=== PATIENT | female | born 1945 ===

== ENCOUNTER 2016-11-13 12:01 | Inpatient (IN) | payer MEDICARE ==
[2016-11-11 15:20] VITALS: BMI 38.0
[~2016-11-13 12:01] MED LIST: DEXAMETHASONE SOD PHOSPHATE 10 MG/ML 1 ML VIAL IV ONE; HEPARIN SODIUM,PORCINE 5,000 UNIT/ML 1 ML VIAL SQ ONE; HYDROmorphone 1 MG/ML 1 ML SYRINGE IVP PRN; LACTATED RINGERS 1,000 ML IV SCH; ONDANSETRON 4 MG/2 ML VIAL IVP ONE; ceFAZolin 2 GM in SODIUM CHLORIDE 0.9% 100 ML IVPB ONE
[2016-11-13 12:40] LABS: Glucose,Whole Blood 122 mg/dL (75-99)
[2016-11-13] MEDS ORDERED: LIDOCAINE 1% 20 ML VIAL (10MG/ML) FOR IV START INTRADERMA ONE (12:43)
[2016-11-13] MEDS ORDERED: DEXAMETHASONE SOD PHOS (MDV) 100 MG/10 ML VIAL IV ONE (12:44)
[2016-11-13] MEDS ORDERED: ONDANSETRON 4 MG/2 ML VIAL IVP ONE (12:44)
[2016-11-13] MEDS: LACTATED RINGERS 1,000 ML IV SCH ×3 (12:44→20:26)
[2016-11-13] MEDS ORDERED: BUPIVACAIN-EPI 0.25%-1:200,000 30 ML VIAL SQ ONE (12:50)
--- NOTE | 2016-11-13 12:57 | P.GSHP ---
History of Present Illness H&P Date: 11/13/16 Chief Complaint: Incarcerated umbilical hernia This is a 71-year-old female who presents today for laparoscopic robotic- assisted repair of incarcerated hernia. Patient has developed a mass at the umbilicus. Past Medical History Past Medical History: CVA/TIA, Diabetes Mellitus, Hyperlipidemia, Hypertension, Osteoarthritis (OA), Thyroid Disorder Additional Past Medical History / Comment(s): umbilical hernia, ?tia in past, hx gerd, none now, History of Any Multi-Drug Resistant Organisms: None Reported Past Surgical History: Joint Replacement, Orthopedic Surgery Additional Past Surgical History / Comment(s): jody fundlaplasty, partial left knee replacement, rt wrist sx, AV fistula sx x2 Past Anesthesia/Blood Transfusion Reactions: No Reported Reaction Additional Past Anesthesia/Blood Transfusion Reaction / Comment(s): patient states "I do not want any Versed at all" Past Psychological History: Anxiety, Depression Smoking Status: Former smoker Past Alcohol Use History: None Reported Additional Past Alcohol Use History / Comment(s): quit smoking 2005, smoked on and off from age 19 (1964) 1 ppd Past Drug Use History: None Reported - Past Family History Mother Family Medical History: No Reported History Medications and Allergies Home Medications Medication Instructions Recorded Confirmed Type Ascorbic Acid [Vitamin C] 500 mg PO DAILY 11/11/16 11/13/16 History Aspirin [Children's Aspirin] 81 mg PO BID 11/11/16 11/13/16 History Calcium Carbonate/Vitamin D3 1 each PO DAILY 11/11/16 11/13/16 History [Calcium 500-Vit D3 200 Tablet] Denosumab [Prolia] 60 mg SQ Q180D 11/11/16 11/13/16 History Glimepiride [Amaryl] 2 mg PO BID 11/11/16 11/13/16 History Insulin Degludec [Tresiba 30 unit SQ HS 11/11/16 11/13/16 History Flextouch U-100] Levothyroxine Sodium [Synthroid] 50 mcg PO DAILY 11/11/16 11/13/16 History Lisinopril [Prinivil] 10 mg PO HS 11/11/16 11/13/16 History Multivit-Min/Iron/Folic/Lutein 1 each PO DAILY 11/11/16 11/13/16 History [Centrum Silver Women Tablet] [place]-3 Fatty Acids/Fish Oil [Fish 1 each PO DAILY 11/11/16 11/13/16 History Oil 1,000 mg Capsule] PARoxetine [Paxil] 20 mg PO HS 11/11/16 11/13/16 History Simvastatin 40 mg PO DAILY 11/11/16 11/13/16 History lamoTRIgine [LaMICtal] 75 mg PO HS 11/11/16 11/13/16 History metFORMIN HCL [Metformin HCl] 850 mg PO BID 11/11/16 11/13/16 History traMADol HCL [Ultram] 50 mg PO Q6HR PRN 11/11/16 11/13/16 History Allergies Allergy/AdvReac Type Severity Reaction Status Date / Time Iodine and Iodide Containing Allergy NUMBNESS Verified 11/13/16 12:21 Produc shellfish derived [Shellfish] Allergy Unknown Verified 11/13/16 12:21 Surgical - Exam Vital Signs Temp Pulse BP Pulse Ox 97.3 F L 75 115/73 99 11/13/16 12:29 11/13/16 12:29 11/13/16 12:29 11/13/16 12:29 - General well developed, no distress - Eyes PERRL - ENT normal pinna - Neck no masses - Respiratory normal expansion - Cardiovascular Rhythm: regular - Abdomen Abdomen: soft, non tender Hernia: umbilical (5 cm partially umbilical hernia) Results - Labs Abnormal Lab Results - Last 24 Hours (Table) 11/13/16 Range/Units 12:37 POC Glucose (mg/dL) 122 H (75-99) mg/dL Assessment and Plan Plan: Incarcerated we'll hernia. We'll perform laparoscopic robotic system repair.
[2016-11-13] MEDS ORDERED: LABETALOL 5 MG/ML VIAL MDV ONE (13:49)
[2016-11-13] MEDS ORDERED: fentaNYL (PF) 50 MCG/ML 2 ML AMP ONE (13:49)
[2016-11-13] MEDS ORDERED: NEOSTIGMINE 1 MG/ML 10 ML VIAL ONE (13:49)
[2016-11-13] MEDS ORDERED: LIDOCAINE 1% INJ 10MG/ML (20 ML MDV) ONE (13:49)
[2016-11-13] MEDS ORDERED: GLYCOPYRROLATE 0.2 MG/ML 2 ML VIAL ONE (13:49)
[2016-11-13] MEDS ORDERED: SUCCINYLCHOLINE CHLORIDE 100 MG/5 ML SYR IV ONE (13:49)
[2016-11-13] MEDS ORDERED: ROCURONIUM BROMIDE 10 MG/ML 10 ML VIAL IV ONE (13:49)
[2016-11-13] MEDS ORDERED: MORPHINE SULFATE 10 MG/ML SYRINGE ONE (13:49)
[2016-11-13] MEDS ORDERED: PROPOFOL 10 MG/ML 20 ML VIAL IV ONE (13:49)
[2016-11-13] MEDS ORDERED: LACTATED RINGERS 1,000 ML IV ONE ×2 (14:25→15:47)
--- NOTE | 2016-11-13 14:52 | P.OP ---
Date of Procedure: 11/13/16 Preoperative Diagnosis: Incarcerated umbilical hernia Postoperative Diagnosis: Incarcerated umbilical hernia Procedure(s) Performed: Laparoscopic robotic-assisted repair of incarcerated umbilical hernia Partial greater omentectomy Implants: Anesthesia: RUSS Surgeon: Javier Del Valle Estimated Blood Loss (ml): 5 Pathology: other (Incarcerated omentum) Condition: stable Disposition: PACU Indications for Procedure: Operative Findings: Description of Procedure: The patient's placed on the operative table in supine position. She received general anesthesia. Her abdomen was prepped and draped in sterile fashion. The skin incision sites were anesthetized 1% local Xylocaine. Using 11 blade a skin was incised in the left upper quadrant and then using the optical 5 mm trocar the perineal cavity is entered under direct visualization and then the abdomen insufflated after adequate insufflation the laparoscope was placed back the pleural cavity. Next a 8 mm robotic trochars placed in the left lower quadrant and a 12 mm trochars placed the left lateral position the original 5 mm trocar was exchanged for an 8 mm robotic trocar. The patient's placed in the left side up position and then docked to the robot. The patient's hernia was examined. There was incarcerated omentum within the hernia. This was dissected free using the cautery. The fascial defect was then closed OV lock suture. After this was performed the ventral ST mesh was secured using 20 the lock suture. The patient was then undocked the robot. The needles were retrieved. And then the incarcerated omentum was brought out through an Endo Catch withdrawn and sent to pathology. The 12 mm trocar site was closed with 0 Ethibond suture. The skin was closed interrupted 3-0 Monocryl suture. Dermabond was applied. Patient top she will was sent to recovery room stable condition.
[2016-11-13] MEDS ORDERED: HYDROmorphone 1 MG/ML 1 ML SYRINGE IVP ONE ×2 (15:17→15:27)
[2016-11-13 15:35] LABS: Glucose,Whole Blood 186 mg/dL (75-99)
[2016-11-13] MEDS ORDERED: HYDROcodone/APAP 7.5-325MG 1 EACH TAB PO ONE (16:35)
[2016-11-13] MEDS ORDERED: ONDANSETRON 4 MG/2 ML VIAL IVP PRN (19:08)
[2016-11-13] MEDS: HYDROmorphone 1 MG/ML 1 ML SYRINGE IVP PRN (19:10)
[2016-11-13] MEDS: LISINOPRIL 10 MG TAB PO SCH (20:41)
[2016-11-13] MEDS: GLIMEPIRIDE 2 MG TAB PO SCH (20:41)
[2016-11-13] MEDS: metFORMIN 850 MG TAB PO SCH (20:41)
[2016-11-13] MEDS: PARoxetine 20 MG TAB PO SCH (20:41)
[2016-11-13] MEDS: lamoTRIgine 25 MG TAB PO SCH (20:41)
[2016-11-13 20:42] LABS: Glucose,Whole Blood 181 mg/dL (75-99)
[2016-11-13] MEDS: INSULIN LISPRO (humaLOG) 300 UNIT/3 ML VIAL SQ SCH (20:46)
[2016-11-13] MEDS: HYDROcodone/APAP 7.5-325MG 1 EACH TAB PO PRN (21:54)
[2016-11-14] MEDS: HYDROmorphone 1 MG/ML 1 ML SYRINGE IVP PRN ×2 (00:36→20:24)
[2016-11-14] MEDS: HYDROcodone/APAP 7.5-325MG 1 EACH TAB PO PRN ×3 (02:16→13:04)
[2016-11-14] MEDS: LEVOTHYROXINE 50 MCG TAB PO SCH (06:15)
[2016-11-14 06:49] LABS: Glucose,Whole Blood 78 mg/dL (75-99)
[2016-11-14] MEDS: INSULIN LISPRO (humaLOG) 300 UNIT/3 ML VIAL SQ SCH ×4 (08:05→20:25)
[2016-11-14] MEDS: ATORVASTATIN 20 MG TAB PO SCH (08:12)
[2016-11-14] MEDS: metFORMIN 850 MG TAB PO SCH ×2 (08:12→17:34)
[2016-11-14] MEDS: GLIMEPIRIDE 2 MG TAB PO SCH ×2 (08:12→20:24)
[2016-11-14 12:11] LABS: Glucose,Whole Blood 117 mg/dL (75-99)
[2016-11-14] MEDS: LACTATED RINGERS 1,000 ML IV SCH (15:39)
[2016-11-14 17:00] LABS: Glucose,Whole Blood 104 mg/dL (75-99)
--- NOTE | 2016-11-14 19:05 | P.PN ---
Subjective Principal diagnosis: Postop incisional hernia repair The patient was admitted last night for complaints of incisional pain. She states that she still has incisional pain and has trouble when moving. Objective - Vital Signs Vital signs: Vital Signs Temp 98 F 11/14/16 16:00 Pulse 88 11/14/16 16:00 Resp 16 11/14/16 16:00 BP 153/76 11/14/16 16:00 Pulse Ox 92 L 11/14/16 16:00 Intake & Output 11/14/16 11/14/16 11/15/16 06:59 18:59 06:59 Intake Total 810 236 Balance 810 236 Weight 94.347 kg Intake: Intake, IV Titration 360 Amount Lactated Ringers 1,000 ml 360 @ 50 mls/hr IV .Q20H ALBARO Rx#:[id number] Oral 450 236 Other: Voiding Method Toilet Toilet # Voids 2 - Constitutional General appearance: Present: cooperative - Gastrointestinal Gastrointestinal Comment(s): Abdomen soft. Incision site is clean dry intact. - Labs Labs: Abnormal Lab Results - Last 24 Hours (Table) 11/13/16 11/14/16 11/14/16 Range/Units 20:36 12:10 16:58 POC Glucose (mg/dL) 181 H 117 H 104 H (75-99) mg/dL Assessment and Plan Plan: Status post laparoscopic robotic-assisted repair of incisional hernia. Patient will remain in the hospital today secondary to pain control issues. We'll continue IV Dilaudid when necessary. Hopefully discharged home in the a.m.
[2016-11-14 20:02] LABS: Glucose,Whole Blood 131 mg/dL (75-99)
[2016-11-14] MEDS: LISINOPRIL 10 MG TAB PO SCH (20:25)
[2016-11-14] MEDS: PARoxetine 20 MG TAB PO SCH (20:25)
[2016-11-14] MEDS: lamoTRIgine 25 MG TAB PO SCH (20:25)
[2016-11-15] MEDS: HYDROmorphone 1 MG/ML 1 ML SYRINGE IVP PRN ×2 (00:18→05:54)
[2016-11-15] MEDS: LEVOTHYROXINE 50 MCG TAB PO SCH (05:53)
[2016-11-15 06:36] LABS: Glucose,Whole Blood 162 mg/dL (75-99)
[2016-11-15 07:37] VITALS: BP 123/73; PULSE 96; RESP 16; TEMP 97.4
[2016-11-15] MEDS: GLIMEPIRIDE 2 MG TAB PO SCH (08:19)
[2016-11-15] MEDS: INSULIN LISPRO (humaLOG) 300 UNIT/3 ML VIAL SQ SCH ×2 (08:19→12:35)
[2016-11-15] MEDS: metFORMIN 850 MG TAB PO SCH (08:19)
[2016-11-15] MEDS: ATORVASTATIN 20 MG TAB PO SCH (08:19)
[2016-11-15] MEDS: HYDROcodone/APAP 7.5-325MG 1 EACH TAB PO PRN (09:33)
[2016-11-15 11:55] LABS: Glucose,Whole Blood 164 mg/dL (75-99)
--- NOTE | 2016-11-15 12:37 | P.DS ---
Providers Date of admission: 11/15/16 09:28 Expected date of discharge: 11/15/16 Attending physician: Javier Del Valle Primary care physician: Gavi Salgado [facility] Course: [id number] female who was admitted to the hospital postoperatively for control of pain. Patient underwent laparoscopic robotic system repair of incisional hernia. Please see hospital chart for details. Procedures: Laparoscopic robotic-assisted repair of incisional hernia Patient Condition at Discharge: Good Plan - Discharge Summary New Discharge Prescriptions: New Docusate [Colace] 100 mg PO BID #20 capsule HYDROcodone/APAP 7.5-325MG [[place] 7.5] 1 each PO Q4H PRN #60 tab PRN Reason: Pain No Action traMADol HCL [Ultram] 50 mg PO Q6HR PRN PRN Reason: Pain Ascorbic Acid [Vitamin C] 500 mg PO DAILY lamoTRIgine [LaMICtal] 75 mg PO HS PARoxetine [Paxil] 20 mg PO HS Lisinopril [Prinivil] 10 mg PO HS Levothyroxine Sodium [Synthroid] 50 mcg PO DAILY metFORMIN HCL [Metformin HCl] 850 mg PO BID Simvastatin 40 mg PO DAILY [place]-3 Fatty Acids/Fish Oil [Fish Oil 1,000 mg Capsule] 1 cap PO DAILY Multivit-Min/Iron/Folic/Lutein [Centrum Silver Women Tablet] 1 tab PO DAILY Insulin Degludec [Tresiba Flextouch U-100] 30 unit SQ HS Glimepiride [Amaryl] 2 mg PO BID Denosumab [Prolia] 60 mg SQ Q180D Calcium Carbonate/Vitamin D3 [Calcium 500-Vit D3 200 Tablet] 1 tab PO DAILY Aspirin [Children's Aspirin] 81 mg PO BID Discharge Medication List Ascorbic Acid [Vitamin C] 500 mg PO DAILY 11/11/16 [History] Aspirin [Children's Aspirin] 81 mg PO BID 11/11/16 [History] Calcium Carbonate/Vitamin D3 [Calcium 500-Vit D3 200 Tablet] 1 tab PO DAILY 05/18 [History] Denosumab [Prolia] 60 mg SQ Q180D 11/11/16 [History] Glimepiride [Amaryl] 2 mg PO BID 11/11/16 [History] Insulin Degludec [Tresiba Flextouch U-100] 30 unit SQ HS 11/11/16 [History] Levothyroxine Sodium [Synthroid] 50 mcg PO DAILY 11/11/16 [History] Lisinopril [Prinivil] 10 mg PO HS 11/11/16 [History] Multivit-Min/Iron/Folic/Lutein [Centrum Silver Women Tablet] 1 tab PO DAILY 05/18 [History] [place]-3 Fatty Acids/Fish Oil [Fish Oil 1,000 mg Capsule] 1 cap PO DAILY [History] PARoxetine [Paxil] 20 mg PO HS 11/11/16 [History] Simvastatin 40 mg PO DAILY 11/11/16 [History] lamoTRIgine [LaMICtal] 75 mg PO HS 11/11/16 [History] metFORMIN HCL [Metformin HCl] 850 mg PO BID 11/11/16 [History] traMADol HCL [Ultram] 50 mg PO Q6HR PRN 11/11/16 [History] Docusate [Colace] 100 mg PO BID #20 capsule 11/15/16 [Rx] HYDROcodone/APAP 7.5-325MG [[place] 7.5] 1 each PO Q4H PRN #60 tab 11/15/16 [Rx] Follow up Appointment(s)/Referral(s): Javier Del Valle MD [STAFF PHYSICIAN] - 11/22/16 1:50 pm Patient Instructions/Handouts: *Surgery [facility] - (Anesthesia) Discharge Instructions Outpatient Surgery, Laparoscopic Herniorrhaphy (DC), Umbilical Hernia (DC) Discharge Disposition: HOME SELF-CARE
[2016-11-15] MEDS: LACTATED RINGERS 1,000 ML IV SCH (17:17)
== END 2016-11-15 17:12 | disposition home or self-care (01) | DRG 355 ==
LOC: OR 12:01 → 3OBS 15:06 → OR 11-15 09:28
PROVIDERS: ADMIT Surgery; ATTEND Surgery
PROC: 0WUF4JZ Supplement Abdominal Wall with Synthetic Substitute, Percutaneous Endoscopic Approach (ICD-10-PCS; principal; 2016-11-15)
PROC: 0DBS0ZZ (ICD-10-PCS; principal; 2016-11-15)
PROC: 8E0W4CZ Robotic Assisted Procedure of Trunk Region, Percutaneous Endoscopic Approach (ICD-10-PCS; principal; 2016-11-15)
DX: K42.0 Umbilical hernia with obstruction, without gangrene (principal); E11.9 Type 2 diabetes mellitus without complications; I10 Essential (primary) hypertension; F32.9 Major depressive disorder, single episode, unspecified; E78.5 Hyperlipidemia, unspecified; F41.9 Anxiety disorder, unspecified; Z79.4 Long term (current) use of insulin; Z79.899 Other long term (current) drug therapy; Z86.73 Personal history of transient ischemic attack (TIA), and cerebral infarction without residual deficits; Z87.891 Personal history of nicotine dependence; Z96.652 Presence of left artificial knee joint; Z79.82 Long term (current) use of aspirin
CPT/HCPCS: 88302

== ENCOUNTER → 2019-02-02 | Outpatient (CLI) | payer MEDICARE ==
[2019-02-02 14:05] VITALS: BP 113/74; PULSE 84; RESP 16
--- NOTE | 2019-02-02 14:45 | P.PAINCN ---
History of Present Illness - Reason for Consult Consult date: 02/02/19 - Chief Complaint Low back pain - History of Present Illness This is initial consultation visit for this 73 years old female, with a chronic history of severe low back pain, pain started more than 15 years ago she denies any initiating event, and increased intensity over time, the pain increased with walking or standing ,and alleviated with sitting position, the patient reported that she had a few episodes of leg cramps bilaterally, but she never had weakness in her lower extremities she has no numbness or tingling sensation, the pain mostly in the low back area, and it's more severe on the left side but recently , he started having pain on the right side, she denies any fever or night sweats she denies any motor or sensory deficit, and there is no change in bowel movement or urination, she tried physical therapy and chiropractics with minimal benefit, she tried a medication and she is currently on Tylenol 3, she is getting some benefit from it, she denies any side effects from the m edication. Past Medical History Past Medical History: CVA/TIA, Diabetes Mellitus, Hyperlipidemia, Hypertension, Osteoarthritis (OA), Thyroid Disorder Additional Past Medical History / Comment(s): ?tia in past, hx gerd, osteoporosis History of Any Multi-Drug Resistant Organisms: None Reported Past Surgical History: Hernia Repair, Joint Replacement, Orthopedic Surgery Additional Past Surgical History / Comment(s): carpal tunnel left wrist, umbilical hernia, jody fundlaplasty, partial left knee replacement, rt wrist sx, AV fistula sx x2 Past Anesthesia/Blood Transfusion Reactions: Previous Problems w/ Anesthesia Additional Past Anesthesia/Blood Transfusion Reaction / Comm: patient states "I do not want any Versed at all" Past Psychological History: Anxiety, Depression Smoking Status: Former smoker Past Alcohol Use History: Rare Additional Past Alcohol Use History / Comment(s): quit smoking 2005, smoked on and off from age 19 (1965) 1 ppd Past Drug Use History: None Reported - Past Family History Mother Family Medical History: Hypertension Medications and Allergies Home Medications Medication Instructions Recorded Confirmed Type Ascorbic Acid [Vitamin C] 500 mg PO DAILY 11/11/16 02/02/19 History Aspirin [Children's Aspirin] 81 mg PO BID 11/11/16 02/02/19 History Calcium Carbonate/Vitamin D3 1 tab PO DAILY 11/11/16 02/02/19 History [Calcium 500-Vit D3 200 Tablet] Denosumab [Prolia] 60 mg SQ Q180D 11/11/16 02/02/19 History Insulin Degludec [Tresiba 27 unit SQ HS 11/11/16 02/02/19 History Flextouch U-100] Levothyroxine Sodium [Synthroid] 50 mcg PO DAILY 11/11/16 02/02/19 History Multivit-Min/Iron/Folic/Lutein 1 tab PO DAILY 11/11/16 02/02/19 History [Centrum Silver Women Tablet] [place]-3 Fatty Acids/Fish Oil [Fish 1 cap PO DAILY 11/11/16 02/02/19 History Oil 1,000 mg Capsule] Simvastatin 40 mg PO DAILY 11/11/16 02/02/19 History metFORMIN HCL [Metformin HCl] 850 mg PO BID 11/11/16 02/02/19 History Acetaminophen-Codeine 300-30mg 1 tab PO BID 01/28/19 02/02/19 History [Tylenol w/codeine #3] Lisinopril 20 mg PO HS 01/28/19 02/02/19 History Quetiapine 1 tab PO DAILY 01/28/19 02/02/19 History Allergies Allergy/AdvReac Type Severity Reaction Status Date / Time Iodine and Iodide Containing Allergy states Verified 02/02/19 13:50 Produc "paralysis" shellfish derived [Shellfish] Allergy Unknown Verified 02/02/19 13:50 midazolam [From Versed] AdvReac Confusion Verified 02/02/19 13:55 Physical Exam Vitals: Vital Signs Pulse Resp BP Pulse Ox 02/02/19 13:52 84 16 113/74 96 Intake and Output 02/01/19 02/02/19 02/02/19 22:59 06:59 14:59 Other: Weight 86.183 kg REVIEW OF ORGAN SYSTEMS: CONSTITUTIONAL: No fevers or chills. No recent weight loss. EYES: History of troubles with vision. No glasses. HEENT: No difficulties with hearing. No nosebleeds. No difficulty swallowing. RESPIRATORY: Past pneumonia. Denies any troubles with breathing or dyspnea on exertion. CARDIOVASCULAR: High blood pressure and hypercholesterolemia. GASTROINTESTINAL: Denies fatty food intolerance. Has change in bowel habits and gas bloat. GENITOURINARY: Denies any blood in urine. Has increased urinary frequency. NEUROLOGICAL: Denies any numbness or tingling along the distal extremities. No seizure disorders or headaches. MUSCULOSKELETAL: Has back pain, stiffness or joint arthritis. SKIN: Past t skin cancer. No rash. PSYCHIATRIC: Denies current depression or suicidal thoughts. ENDOCRINE: ++ thyroid disorders. ++ DM . HEME/LYMPHATIC: Denies any lumps and bumps around the neck. History of deep venous thrombosis. ALLERGY/IMMUNOLOGY: No immunoglobulin therapy. No immune deficiencies. BREAST: Denies current breast lumps, pain or nipple discharge. Physical Examinations : Constitutiona : Cooperative , not in acute distress . HEENT : nech : supple , no Lymphadenopathy , normal thyroid size . eyes : no ptosis , no icterus, no photophobia . ENT : normal of hearing , normal oropharynx , no Thrush . Respiratory : Chest clear to auscultations Bilaterally , no wheezing , no Rhonchi . Cardiovascula : regular rate and rhythem , S1 , S2 , no S3 , no S4. Gastrointestina : abdomen soft no tenderness , bowel sounds , no organomegally . Genitourinary : Defferred . neurologic : Cranial nerve II to XII intact , no focal neurological deffecit . psychatric : alert , oriented X 3 , appropriate affect , intact judgment and insight . Lymphatic : no Lymphadenopathy . musculoskeltal : Lumber spine moter stegnth lower extremities ,thigh and legs 5/5 Right side , 5/5 Left side deep tendon reflexes : normal Knee Jerk , normal ankle Jerk positive lumber facet Loading Test Range of motion of the lumbar spine Flexion 30 degrees, extension 10 degrees strait leg raising test= negative bilaterally Fabere test = negative bilaterally mild tenderness over the Sacroiliac joint on the R and L sides Results Comments: MRI of the lumbar spine done at [facility] in November 2018= L3 4 canal narrowing and facet arthropathy, L 5 S1 facet arthropathy Compression fracture at L1 Assessment and Plan Plan: Assessment and plan= chronic severe low back pain secondary to lumbar spondylosis with lumbar facet arthropathy, lumbar spinal stenosis Patient had a history of compression fracture of the lumbar spine Clinically most of the pain is coming from the lumbar spondylosis with the lumbar facet arthropathy She will be good candidate to have diagnostic medial branch block lumbar area L3/L4/L5 (to block the facet joint L4-5 /L5-S1 ) Time with Patient: Greater than 30 PQRS Measure Charge Sheet Measure #130: Documentation of Current Meds in Medical Chart: Patient's medications documented in chart Measure #226: Tobacco Use: Screen & Cessation Intervention: Pt not a tobacco user Measure #111: Pneumonia Vaccination: Pneumococcal vaccine administered or previously received Measure #47: Advance Care Plan: Advance care planning discussed & documented, pt chose/unable to give Measure #412: Opioid Treatment Agreement: No documentation of signed opioid treatment agreement Measure #408: Opioid Therapy Follow-up Evaluation: Patient had NO f/u eval minimum every 3 months during opioid therapy Measure #317: Preventitive Care & Scrn High Bld Press & F/U: Normal blood pressure, f/u not required Measure #128: Body Mass Index (BMI) Screening & Follow-up: BMI documented ABOVE normal parameters - f/u documented Measure #131: Pain Assessment & Follow-up: Pain positive & plan documented, Follow-up scheduled Measure #431: Unhealthy Alcohol Use Preventative Care & Scrn: Patient not identified as an unhealthy alcohol user PQRS Narrative: Smoking Status Former smoker Blood Pressure 113/74 Pain Intensity [Bilateral 7 Lower Back] Pain Intensity [Right Back] 3 Scale Used Numeric (1 - 10) Hx Alcohol Use (MH) No Home Medications: Ambulatory Orders Ascorbic Acid [Vitamin C] 500 mg PO DAILY 11/11/16 Aspirin [Children's Aspirin] 81 mg PO BID 11/11/16 Calcium Carbonate/Vitamin D3 [Calcium 500-Vit D3 200 Tablet] 1 tab PO DAILY 11/11/16 Denosumab [Prolia] 60 mg SQ Q180D 11/11/16 Insulin Degludec [Tresiba Flextouch U-100] 27 unit SQ HS 11/11/16 Levothyroxine Sodium [Synthroid] 50 mcg PO DAILY 11/11/16 Multivit-Min/Iron/Folic/Lutein [Centrum Silver Women Tablet] 1 tab PO DAILY 11/11/16 [place]-3 Fatty Acids/Fish Oil [Fish Oil 1,000 mg Capsule] 1 cap PO DAILY 11/11/16 Simvastatin 40 mg PO DAILY 11/11/16 metFORMIN HCL [Metformin HCl] 850 mg PO BID 11/11/16 Acetaminophen-Codeine 300-30mg [Tylenol w/codeine #3] 1 tab PO BID 01/28/19 Lisinopril 20 mg PO HS 01/28/19 Quetiapine 1 tab PO DAILY 01/28/19
== END | disposition home or self-care (01) ==
LOC: PNWHC3 13:40
PROVIDERS: ATTEND Specialist
DX: G89.29 Other chronic pain (principal); M48.061 Spinal stenosis, lumbar region without neurogenic claudication; M47.816 Spondylosis without myelopathy or radiculopathy, lumbar region; M46.96 Unspecified inflammatory spondylopathy, lumbar region; Z87.81 Personal history of (healed) traumatic fracture; Z87.891 Personal history of nicotine dependence; Z79.891 Long term (current) use of opiate analgesic; Z79.82 Long term (current) use of aspirin; Z79.84 Long term (current) use of oral hypoglycemic drugs; Z79.4 Long term (current) use of insulin; Z79.899 Other long term (current) drug therapy; Z91.013 Allergy to seafood; Z88.4 Allergy status to anesthetic agent; Z91.041 Radiographic dye allergy status
CPT/HCPCS: 99211

== ENCOUNTER 2019-02-10 08:26 | Day surgery (SDC) | payer MEDICARE ==
[2019-02-05 14:26] VITALS: BMI 34.7
[~2019-02-10 08:26] MED LIST changes: -DEXAMETHASONE SOD PHOSPHATE 10 MG/ML 1 ML VIAL IV ONE; -HEPARIN SODIUM,PORCINE 5,000 UNIT/ML 1 ML VIAL SQ ONE; -HYDROmorphone 1 MG/ML 1 ML SYRINGE IVP PRN; -ONDANSETRON 4 MG/2 ML VIAL IVP ONE; -ceFAZolin 2 GM in SODIUM CHLORIDE 0.9% 100 ML IVPB ONE
[2019-02-10 08:54] VITALS: TEMP 97.2
[2019-02-10 09:03] LABS: Glucose,Whole Blood 70 mg/dL (75-99)
[2019-02-10 09:29] VITALS: RESP 16
--- NOTE | 2019-02-10 09:38 | FL ---
Fluoroscopy HISTORY: Pain 3 seconds fluoroscopy time supplied to the referring clinician. 1 intraoperative C-arm images docume nt the procedure. See dictated report from anesthesia.
[2019-02-10 09:42] VITALS: BP 104/58; PULSE 70
[2019-02-10 09:54] LABS: Glucose,Whole Blood 74 mg/dL (75-99)
--- NOTE | 2019-02-10 11:55 | P.PCN ---
Date of Procedure: 02/10/19 Description of Procedure: PREOPERATIVE DIAGNOSIS : Lumbar spondylosis with Facet Arthropathy without myelopathy POSTOPERATIVE DIAGNOSIS: same PROCEDURE: Diagnostic lumbar medial branch block with fluoroscopy at bilateral L4 5, L5-S1, sacral ala ANESTHESIA: Local anesthetic; Versed and fentanyl Surgeon: Kedar Cheema MD PROCEDURE INDICATION: This is a pleasant 73-year-old woman with a history of intractable low back pain who presents today for bilateral lumbar medial branch nerve blocks PROCEDURE DESCRIPTION: the patient was seen and identified in the preop holding area , risks and benefits and possible complications of the procedure and alternative were discussed with the patient, and the patient agreed to proceed with the procedure and signed the consent IV was started and vital signs monitored during the procedure and fluoroscopy was used to maximize the benefit and accuracy of the needle placement, and sedation was given to decrease patient anxiety, patient was taken to the procedure room and placed in prone position vital signs monitored in the back prepped. Under strict sterile technique using a right oblique fluoroscopy ,the junction of the transverse process and the superior articulating process of the bilateral L4- 5, L5-S1 and sacral ala vertebra which corresponding to the fluoroscopy image of the eye of the [place] dog on the block side for the medial branches and subse quently , after local infiltration of skin and subcutaneous tissues with lidocaine 1% one mL at each level ,then one 25-gauge Quincke-type needles was placed at the junction of the base of the transverse process and the superior articular process at the appropriate level, and the needle was advanced until the periosteum contacted, needle placement confirmed with AP oblique and lateral view and after appropriate needle placement confirmed, and after negative aspiration, 0.5 mL of Marcaine 0.5% mixed with 40 mg depomedrol in divided doses was injected at each level and the needle subsequently removed . At the end of the procedure and the needles removed and a bandage applied after the skin was cleaned the cleaning solution patient taken to recovery room in stable condition and monitors in the recovery room for 20-30 minutes and discharged home in stable condition after discharge criteria met and patient will follow up with the pain clinic in 2-4 weeks EBL: Minimal COMPLICATION: None.
== END 2019-02-10 09:51 | disposition home or self-care (01) ==
LOC: ORPAIN 08:26
PROVIDERS: ATTEND Pain Medicine Pain Medicine
DX: G89.29 Other chronic pain (principal); M47.816 Spondylosis without myelopathy or radiculopathy, lumbar region; Z79.891 Long term (current) use of opiate analgesic; E11.9 Type 2 diabetes mellitus without complications; E78.5 Hyperlipidemia, unspecified; M19.90 Unspecified osteoarthritis, unspecified site; I10 Essential (primary) hypertension; E07.9 Disorder of thyroid, unspecified; M81.0 Age-related osteoporosis without current pathological fracture; Z96.652 Presence of left artificial knee joint; F41.9 Anxiety disorder, unspecified; F32.9 Major depressive disorder, single episode, unspecified; Z87.891 Personal history of nicotine dependence; Z82.49 Family history of ischemic heart disease and other diseases of the circulatory system; Z79.82 Long term (current) use of aspirin; Z79.890 Hormone replacement therapy; Z79.4 Long term (current) use of insulin; Z79.899 Other long term (current) drug therapy; Z91.013 Allergy to seafood; Z88.8 Allergy status to other drugs, medicaments and biological substances; Z91.048 Other nonmedicinal substance allergy status
CPT/HCPCS: 64493; 64494; J1030

== ENCOUNTER 2019-02-24 10:00 | Day surgery (SDC) | payer MEDICARE ==
[2019-02-22 15:04] VITALS: BMI 34.7
[2019-02-24 10:16] VITALS: RESP 16; TEMP 97.8
[2019-02-24 10:34] LABS: Glucose,Whole Blood 63 mg/dL (75-99)
--- NOTE | 2019-02-24 11:02 | P.PCN ---
Date of Procedure: 02/24/19 Procedure(s) Performed: PREOPERATIVE DIAGNOSIS : Lumbar spondylosis with Facet Arthropathy without myelopathy POSTOPERATIVE DIAGNOSIS: same PROCEDURE: Second Diagnostic lumbar medial branch block with fluoroscopy at L3, L4, L5 bilateral which covers facets L4-5 and L5-S1 ANESTHESIA: Local anesthetic; no IV sedation Fluoroscopy was used for the procedure and images were saved in the radiology portion of the chart. Surgeon: Sapna Donnelly MD PROCEDURE INDICATION: Lumbar back pain without radiculopathy, not responsive to conservative management. PROCEDURE DESCRIPTION: the patient was seen and identified in the preop holding area , risks and benefits and possible complications of the procedure and alternatives were discussed with the patient, and the patient agreed to proceed with the procedure and signed the consent . IV was started , vital signs were monitored during the procedure and fluoroscopy was used to maximize the benefit and accuracy of the needle placement. Patient was taken to the procedure room and placed in prone position. The lumbar region was prepped using chlo [id number]. Under strict sterile technique using AP fluoroscopy the bilateral sacral ala were identified and using ipsilateral oblique fluoroscopy ,the junction of the transverse process and the superior articulating process of the L4, L5 vertebra which corresponds to the fluoroscopy image of the eye of the [place] dog for the medial branches were identified. Subsequently, after local infiltration of skin with lidocaine 1% 0.2 mL at each level , a 25-gauge 5" Quincke-type needle was placed at the junction of the base of the transverse process and the superior articular process at the appropriate level as well as the sacral ala, and the needle was advanced until the periosteum contacted, needle placement confirmed with AP and oblique fluoroscopy, 0.5 mL of lidocaine 4% was injected at each level and the needle subsequently removed . At the end of the procedure and the needles were removed and a bandage applied after the skin was cleaned. The patient was taken to recovery room in stable condition and monitors in the recovery room for 20-30 minutes and discharged home in stable condition after discharge criteria met and patient will follow up in clinic in 2 weeks Comments: No contrast dye was used as the patient is ALLERGIC to iodine. EBL: Minimal COMPLICATION: None.
[2019-02-24] MEDS ORDERED: LACTATED RINGERS 1,000 ML IV SCH (11:07)
[2019-02-24 11:10] LABS: Glucose,Whole Blood 132 mg/dL (75-99)
[2019-02-24 11:24] VITALS: BP 105/66; PULSE 71
--- NOTE | 2019-02-24 11:37 | FL ---
EXAMINATION TYPE: FL guided pain mgmt statistic DATE OF EXAM: 02/24/2019 HISTORY: Flouroscopy time 6 seconds of fluoroscopy provided. IMPRESSION: 1. Fluoroscopy time.
== END 2019-02-24 11:31 | disposition home or self-care (01) ==
LOC: ORPAIN 10:00
PROVIDERS: ATTEND Anesthesiology
DX: G89.29 Other chronic pain (principal); M47.816 Spondylosis without myelopathy or radiculopathy, lumbar region; M48.061 Spinal stenosis, lumbar region without neurogenic claudication; I10 Essential (primary) hypertension; E78.5 Hyperlipidemia, unspecified; E11.9 Type 2 diabetes mellitus without complications; Z09 Encounter for follow-up examination after completed treatment for conditions other than malignant neoplasm; Z86.73 Personal history of transient ischemic attack (TIA), and cerebral infarction without residual deficits; M19.90 Unspecified osteoarthritis, unspecified site; E07.9 Disorder of thyroid, unspecified; K21.9 Gastro-esophageal reflux disease without esophagitis; M81.0 Age-related osteoporosis without current pathological fracture; Z96.652 Presence of left artificial knee joint; F41.9 Anxiety disorder, unspecified; F32.9 Major depressive disorder, single episode, unspecified; Z87.891 Personal history of nicotine dependence; Z82.49 Family history of ischemic heart disease and other diseases of the circulatory system; Z87.311 Personal history of (healed) other pathological fracture; Z78.0 Asymptomatic menopausal state; Z79.82 Long term (current) use of aspirin; Z79.890 Hormone replacement therapy; Z79.4 Long term (current) use of insulin; Z79.891 Long term (current) use of opiate analgesic; Z79.899 Other long term (current) drug therapy; Z88.4 Allergy status to anesthetic agent; Z91.013 Allergy to seafood; Z91.048 Other nonmedicinal substance allergy status

== ENCOUNTER → 2019-03-10 | Outpatient (CLI) | payer MEDICARE ==
[2019-03-10 15:05] VITALS: BP 148/85; PULSE 76; RESP 16
--- NOTE | 2019-03-12 10:18 | P.PAINPG ---
Subjective Progress Note Date: 03/10/19 This is a follow-up visit for this 73 years old female, she recently underwent bilateral lumbar medial branch blocks 2. She returns today for follow-up. She reports almost 100% relief from these 2 procedures, the first procedure gave her good relief for about 2 weeks, the second gave her relief for about 4-5 days. She would like to proceed with radiofrequency ablation, left side first. Her history is notable for a chronic history of severe low back pain, pain started more than 15 years ago she denies any initiating event, and increased intensity over time, the pain increased with walking or standing ,and alleviated with sitting position, the patient reported that she had a few episodes of leg cramps bilaterally, but she never had weakness in her lower extremities she has no numbness or tingling sensation, she tried physical therapy and chiropractics with minimal benefit, she tried medications and she is currently on Tylenol 3, she is getting some benefit from it, she denies any side effects from the medication. Review of systems is negative for chest pain, shortness of breath, new onset weakness, numbness/tingling, abdominal pain, malaise, fever, night sweats, chills, homicidal or suicidal ideation, or bowel or bladder incontinence. Physical exam: Vitals: Reviewed in EMR GENERAL: Well appearing, in no acute distress PSYCH: Mood and affect is appropriate. Awake, alert, and oriented SKIN: Skin color, texture, turgor normal, no rashes or lesions HEENT: Normocephalic, atraumatic. EOM intact CV: No pedal edema RESP: Respirations are unlabored, no audible wheezing GI: Abdomen non-distended MUSCULOSKELETAL: Bilateral lower extremity strength is normal and symmetric. No atrophy or tone abnormalities are noted. Lumbar spine: No pain to palpation over the lumbar spine and paraspinous muscles. Negative for pain with facet loading and back extension/rotation. Extremities: Peripheral joint ROM is full and pain free without obvious instability or laxity in all four extremities. No edema or skin discolorations noted. NEUR: Cranial nerves are grossly intact Results Comments: MRI of the lumbar spine done at [facility] in November 2018= L3 4 canal narrowing and facet arthropathy, L 5 S1 facet arthropathy Compression fracture at L1 Assessment and Plan Plan: Assessment and plan= chronic low back pain secondary to lumbar spondylosis with lumbar facet arthropathy, lumbar spinal stenosis Patient had a history of compression fracture of the lumbar spine Clinically most of the pain is coming from the lumbar spondylosis with the lumbar facet arthropathy She underwent diagnostic medial branch block with excellent benefit. We will schedule radiofrequency ablation of the lumbar area L3/L4/L5 (for facet joints L4-5 /L5-S1 ) left side first, she would like to wait prior to proceeding with right-sided procedure. Of note, she is allergic to iodine and Versed. Time with Patient: Less than 30 PQRS Measure Charge Sheet Measure #130: Documentation of Current Meds in Medical Chart: Patient's medications documented in chart Measure #226: Tobacco Use: Screen & Cessation Intervention: Pt not a tobacco user Measure #111: Pneumonia Vaccination: Pneumococcal vaccine administered or previously received Measure #47: Advance Care Plan: Advance care planning discussed & documented, pt chose/unable to give Measure #412: Opioid Treatment Agreement: No documentation of signed opioid treatment agreement Measure #317: Preventitive Care & Scrn High Bld Press & F/U: Pre-hypertensive or hypertensive BP documented, pt will f/u with PCP Measure #128: Body Mass Index (BMI) Screening & Follow-up: BMI documented ABOVE normal parameters - f/u documented Measure #131: Pain Assessment & Follow-up: Pain positive & plan documented, Follow-up scheduled Measure #431: Unhealthy Alcohol Use Preventative Care & Scrn: Patient not identified as an unhealthy alcohol user PQRS Narrative: Smoking Status Former smoker Pain Intensity [None] 0 Hx Alcohol Use (MH) No Home Medications: Ambulatory Orders Ascorbic Acid [Vitamin C] 500 mg PO DAILY 11/11/16 Aspirin [Children's Aspirin] 81 mg PO BID 11/11/16 Calcium Carbonate/Vitamin D3 [Calcium 500-Vit D3 200 Tablet] 1 tab PO DAILY 11/11/16 Denosumab [Prolia] 60 mg SQ Q180D 11/11/16 Insulin Degludec [Tresiba Flextouch U-100] 27 unit SQ HS 11/11/16 Levothyroxine Sodium [Synthroid] 50 mcg PO DAILY 11/11/16 Multivit-Min/Iron/Folic/Lutein [Centrum Silver Women Tablet] 1 tab PO DAILY 11/11/16 [place]-3 Fatty Acids/Fish Oil [Fish Oil 1,000 mg Capsule] 1 cap PO DAILY 11/11/16 Simvastatin 40 mg PO DAILY 11/11/16 metFORMIN HCL [Metformin HCl] 850 mg PO BID 11/11/16 Lisinopril 20 mg PO HS 01/28/19 Fluocinonide 0.05% [Lidex 0.05% cream] 1 applic TOPICAL BID 02/22/19 QUEtiapine [SEROquel] 50 mg PO HS 02/22/19 hydrOXYzine HCL [Atarax] 10 mg PO HS 02/22/19 predniSONE 10 mg PO DAILY 03/05/19 Controlled Substance Measures - Controlled Substance Measures Is patient prescribed a controlled substance at discharge?: No
== END | disposition home or self-care (01) ==
LOC: PNWHC3 14:41
PROVIDERS: ATTEND Anesthesiology
DX: G89.29 Other chronic pain (principal); M54.5 Low back pain; M48.061 Spinal stenosis, lumbar region without neurogenic claudication; M47.816 Spondylosis without myelopathy or radiculopathy, lumbar region; M46.96 Unspecified inflammatory spondylopathy, lumbar region; R25.2 Cramp and spasm; Z87.81 Personal history of (healed) traumatic fracture; Z87.891 Personal history of nicotine dependence; Z98.890 Other specified postprocedural states; Z79.82 Long term (current) use of aspirin; Z79.84 Long term (current) use of oral hypoglycemic drugs; Z79.4 Long term (current) use of insulin; Z79.899 Other long term (current) drug therapy
CPT/HCPCS: 99211

== ENCOUNTER 2019-03-22 08:51 | Day surgery (SDC) | payer MEDICARE ==
[2019-03-18 14:22] VITALS: BMI 34.7
[2019-03-22 09:53] VITALS: TEMP 98
[2019-03-22] MEDS ORDERED: LACTATED RINGERS 1,000 ML IV ONE (10:04)
[2019-03-22] MEDS ORDERED: LIDOCAINE 1% 20 ML VIAL (10MG/ML) FOR IV START INTRADERMA ONE (10:04)
[2019-03-22 10:09] LABS: Glucose,Whole Blood 101 mg/dL (75-99)
[2019-03-22] MEDS ORDERED: LACTATED RINGERS 1,000 ML IV SCH (10:15)
--- NOTE | 2019-03-22 10:20 | P.PCN ---
Date of Procedure: 03/22/19 Description of Procedure: Procedure(s) Performed: PREOPERATIVE DIAGNOSIS: 1. Lumbar Spondylosis with Facet Arthropathy without myelopathy. 2-. Lumber degenerative disc disease POSTOPERATIVE DIAGNOSIS: 1. Lumbar Spondylosis with Facet Arthropathy without myelopathy. 2-. Lumber degenerative disc disease PROCEDURES: Left Radiofrequency thermocoagulation, L3-L4, L4-L5, and L5-S1 medial branch, with fluoroscopic guidance SURGEON: Awais Torres M.D. ANESTHESIA: Moderate sedation with intravenous versed 2 mg and fentaneyl 100 mcg and local infiltration with lidocaine 1% 4 ml EBL: Minimal PROCEDURE INDICATION: The patient with low back pain secondary to lumbar facet arthropathy who had more than 50% relief of her pain with previous diagnostic lumbar medial branch block with bupivacaine. PROCEDURE DESCRIPTION / TECHNIQUE: The patient was seen and identified in the preoperative area. Risks, benefits, complications, including but not limited to risk of infection ,bleeding , allergic reactions to the medications and no complete pain releife , and alternatives were discussed with the patient, the patient agreed to proceed with the procedure and signed the consent. IV was sta rted. Vital signs remained stable throughout the procedure. Patient was taken to the OR and time out was completed. The patient was placed in the prone position on the procedure table. The lumber area was prepped and draped in the usual sterile fashion. . Vital signs were closely monitored during the procedure .IV sedation was used during the procedure to decrease patients anxiety. Using AP and then oblique fluoroscopy, the ``eye of the [place] dog corresponding to the connection between the superior and transverse articular processes of Left L3, L4, L5, and Sacral Ala were identified, marked, and localized with 1% lidocaine. Subsequently, a 18 [id number] radiofrequency cannula with a 10-mm active tip was advanced guided by fluoroscopy to each of the ``eyes of the [place] dog at Left L3, L4, L5, and Sacral Ala. Each site then underwent sensory testing at 50 Hz and 0 to 1 volt and motor testing at 2.5 Hz and 0 to 3 volt with local stimulation, but no radicular symptoms down the legs. Thereafter the Left L3, L4, L5, and Sacral Ala sites underwent radiofrequency thermocoagulation at 80 degrees celsius for 90 seconds after injecting 0.5 ml of PF lidocaine 1%. then After the thermocoagulation done , 1 ml of the block solution containing Kenalog 40 mg and 4 ml of marain 0.5% was injected at theLeft L3, L4, L5, and Sacral Ala levels after negative aspiration of CSF and blood and with no paresthesias. Cannulas were retracted while injecting lidocaine 1% until the needle is out.. At the end of the procedure, the skin was cleansed and bandages were applied. COMPLICATIONS: No acute complications. DISPOSITION / PLANS: The patient was placed in a supine position and transferred to the recovery area in a stable condition for observation and was discharged from the recovery room after meeting discharge criteria. Home discharge instructions given to the patient by the staff. The patient was reexamined prior to discharge. Will schedule for RIGHT Lumbar RFA of L3-L4, L4- 5, L5-S1
[2019-03-22] MEDS ORDERED: IV FLUID CONTINUATION 1,000 ML IV ONE (10:55)
[2019-03-22 10:58] VITALS: RESP 18
[2019-03-22 12:05] VITALS: BP 114/70; PULSE 70
--- NOTE | 2019-03-22 16:18 | FL ---
Fluoroscopy HISTORY: Pain 23 seconds fluoroscopy time supplied to the referring clinician. 3 intraoperative C-arm images docum ent the procedure. See dictated report from anesthesia.
== END 2019-03-22 11:35 | disposition home or self-care (01) ==
LOC: ORPAIN 08:51
PROVIDERS: ATTEND Anesthesiology
DX: G89.29 Other chronic pain (principal); M47.816 Spondylosis without myelopathy or radiculopathy, lumbar region; M51.36 Other intervertebral disc degeneration, lumbar region; M48.061 Spinal stenosis, lumbar region without neurogenic claudication; E11.9 Type 2 diabetes mellitus without complications; Z79.82 Long term (current) use of aspirin; Z79.890 Hormone replacement therapy; Z79.4 Long term (current) use of insulin; Z79.52 Long term (current) use of systemic steroids; Z79.899 Other long term (current) drug therapy; Z98.890 Other specified postprocedural states; Z87.891 Personal history of nicotine dependence; Z91.09 Other allergy status, other than to drugs and biological substances
CPT/HCPCS: 64635; 64636; J3301; J3010; 99152

== ENCOUNTER 2019-04-05 09:34 | Day surgery (SDC) | payer MEDICARE ==
[2019-04-01 15:02] VITALS: BMI 34.7
[2019-04-05 10:32] VITALS: TEMP 97.7
[2019-04-05] MEDS ORDERED: LIDOCAINE 1% 20 ML VIAL (10MG/ML) FOR IV START INTRADERMA ONE (10:45)
[2019-04-05 10:47] LABS: Glucose,Whole Blood 75 mg/dL (75-99)
[2019-04-05] MEDS ORDERED: LACTATED RINGERS 1,000 ML IV ONE (11:59)
--- NOTE | 2019-04-05 12:01 | P.PCN ---
Date of Procedure: 04/05/19 Procedure(s) Performed: PREOPERATIVE DIAGNOSIS: Lumbar Spondylosis POSTOPERATIVE DIAGNOSIS: Same PROCEDURES: Radiofrequency ablation of the L3, L4, L5 medial branches with fluoroscopic guidance on the right side SURGEON: Sapna Donnelly MD. ANESTHESIA: Lidocaine 1% 5 mL, Moderate sedation with intravenous fentanyl, sedation time 23 minutes EBL: Minimal Fluoroscopy was used for the procedure and images were saved in the radiology portion of the chart. PROCEDURE INDICATION: The patient with low back pain secondary to lumbar facet arthropathy who had more than 50% relief of pain with previous diagnostic lumbar medial branch block X2. PROCEDURE DESCRIPTION / TECHNIQUE: The patient was seen and identified in the preoperative area. Risks, benefits, complications, including but not limited to risk of infection ,bleeding , allergic reactions to the medications and incomplete pain relief , and alternatives were discussed with the patient, the patient agreed to proceed with the procedure and signed the consent. IV was started. The operative site was marked. Patient was taken to the OR and time out was completed. The patient was placed in the prone position on the procedure table. The lumbar area was prepped and draped in the usual sterile fashion. . Vital signs were closely monitored during the procedure .IV sedation was used during the procedure to decrease patients anxiety. Using AP and then oblique fluoroscopy, the "eye of the [place] dog" corresponding to the connection between the superior and transverse articular processes of the right L4 and L5 as well as the sacral ala were identified, marked, and localized with 1% lidocaine. Subsequently, an 18 guage 100 mm radiofrequency cannula with a 10-mm active tip was advanced guided by fluoroscopy to the identified target at each site. Needle positioning was confirmed on AP, oblique and lateral fluoroscopy. Motor testing at 2.5 Hz was done with paraspinal muscle stimulation only, and no radicular symptoms down the legs. Then 1 mL of 4% lidocaine was injected in each site. Radiofrequency thermocoagulation at 80 degrees celsius for 90 seconds was then performed. [place] were removed. Sterile dressings were applied. COMPLICATIONS: No acute complications. DISPOSITION / PLANS: The patient was placed in a supine position and transferred to the recovery area in a stable condition for observation and was discharged from the recovery room after meeting discharge criteria. Home discharge instructions given to the patient by the staff. The patient will follow up in clinic in 4 weeks.
[2019-04-05 12:03] VITALS: RESP 16
[2019-04-05 12:25] LABS: Glucose,Whole Blood 104 mg/dL (75-99)
--- NOTE | 2019-04-05 12:52 | FL ---
EXAMINATION TYPE: FL guided pain mgmt statistic DATE OF EXAM: 04/05/2019 HISTORY: Flouroscopy time 16 seconds of fluoroscopy provided. IMPRESSION: 1. Fluoroscopy time.
[2019-04-05 13:28] VITALS: BP 105/63; PULSE 69
== END 2019-04-05 13:50 | disposition home or self-care (01) ==
LOC: ORPAIN 09:34
PROVIDERS: ATTEND Anesthesiology
DX: G89.29 Other chronic pain (principal); M47.816 Spondylosis without myelopathy or radiculopathy, lumbar region; M48.061 Spinal stenosis, lumbar region without neurogenic claudication; Z87.311 Personal history of (healed) other pathological fracture; Z91.041 Radiographic dye allergy status; Z87.891 Personal history of nicotine dependence; Z78.0 Asymptomatic menopausal state; Z79.01 Long term (current) use of anticoagulants
CPT/HCPCS: 64635; 64636; J3010; 99152; 99153

== ENCOUNTER → 2019-05-03 | Outpatient (CLI) | payer MEDICARE ==
[2019-05-03 13:29] VITALS: BP 110/73; PULSE 73; RESP 16
--- NOTE | 2019-05-03 14:18 | P.PAINPG ---
Subjective Progress Note Date: 05/03/19 This is a follow-up visit for this 73 years old female, she recently underwent lumbar radiofrequency at L3, L4, L5 medial branches, left side done on 03/22/2019 and right side done on 04/05/2019. She returns today for follow-up. She reports that initially she experienced greater than 80% benefit from these procedures, however the pain has slowly started to return. She still is better than she was prior to the procedure, is able to function more, does not have to sit down as often when she's doing dishes. Her pain is still located in bilateral lower back, left greater than right, does not radiate to her legs. Pain is worse with walking, standing and better with lying, sitting. Her pain is described as a "tightness". Pain rated as 0 to 5-6/10, depending on activity. Her history is notable for a chronic history of severe low back pain, pain started more than 15 years ago she denies any initiating event, and increased intensity over time, the pain increased with walking or standing ,and alleviated with sitting position, the patient reported that she had a few episodes of leg cramps bilaterally, but she never had weakness in her lower extremities she has no numbness or tingling sensation, she tried physical therapy and chiropractics with minimal benefit, she tried medications and she is currently on Tylenol 3, she is getting some benefit from it, she denies any side effects from the medication. Review of systems is negative for chest pain, shortness of breath, new onset weakness, numbness/tingling, abdominal pain, malaise, fever, night sweats, chills, homicidal or suicidal ideation, or bowel or bladder incontinence. Physical exam: Vitals: Reviewed in EMR GENERAL: Well appearing, in no acute distress PSYCH: Mood and affect is appropriate. Awake, alert, and oriented SKIN: Skin color, texture, turgor normal, no rashes or lesions HEENT: Normocephalic, atraumatic. EOM intact CV: No pedal edema RESP: Respirations are unlabored, no audible wheezing GI: Abdomen non-distended MUSCULOSKELETAL: Bilateral lower extremity strength is normal and symmetric. No atrophy or tone abnormalities are noted. Lumbar spine: No pain to palpation over the lumbar spine and paraspinous muscles. Negative for pain with facet loading and back extension/rotation. Extremities: Peripheral joint ROM is full and pain free without obvious instability or laxity in all four extremities. No edema or skin discolorations noted. NEUR: Cranial nerves are grossly intact Results Comments: MRI of the lumbar spine done at [facility] in November 2018= L3 4 canal narrowing and facet arthropathy, L 5 S1 facet arthropathy Compression fracture at L1 Assessment and Plan Plan: Assessment and plan= chronic low back pain secondary to lumbar spondylosis with lumbar facet arthropathy, lumbar spinal stenosis Patient had a history of compression fracture of the lumbar spine Of note, she is allergic to iodine and Versed. She underwent radiofrequency ablation of the lumbar area L3/L4/L5 bilaterally, with good benefit, however her pain is gradually starting to return. Patient was instructed to perform home exercises for lumbar stretching and strengthening. She does have exercise sheets from prior physical therapy sessions and will try this at home. If she does not experience significant relief, she will call our clinic for formal physical therapy prescription to be faxed over to her physical therapist. Patient was instructed to take magnesium glycinate 400 mg daily for muscle tightness. If no significant benefit from this, she will call for a prescription for Robaxin 750 mg up to 3 times a day. She has taken Flexeril in the past, and was very drowsy with this. She is also going to start walking for exercise and try to lose weight Follow-up: When necessary. Objective - Vital Signs Vital signs: Vital Signs Temp Pulse 73 05/03/19 13:19 Resp 16 05/03/19 13:19 BP 110/73 05/03/19 13:19 Pulse Ox PQRS Measure Charge Sheet Measure #130: Documentation of Current Meds in Medical Chart: Patient's medications documented in chart Measure #226: Tobacco Use: Screen & Cessation Intervention: Pt not a tobacco user Measure #111: Pneumonia Vaccination: Pneumococcal vaccine administered or previously received Measure #47: Advance Care Plan: Advance care planning discussed & documented, pt chose/unable to give Measure #412: Opioid Treatment Agreement: No documentation of signed opioid treatment agreement Measure #317: Preventitive Care & Scrn High Bld Press & F/U: Normal blood pressure, f/u not required Measure #128: Body Mass Index (BMI) Screening & Follow-up: BMI documented ABOVE normal parameters - f/u documented Measure #131: Pain Assessment & Follow-up: Pain positive & plan documented, Follow-up PRN Measure #431: Unhealthy Alcohol Use Preventative Care & Scrn: Patient not identified as an unhealthy alcohol user PQRS Narrative: Smoking Status Former smoker Blood Pressure 110/73 Pain Intensity [Lower Back] 8 Scale Used Numeric (1 - 10) Hx Alcohol Use (MH) No Home Medications: Ambulatory Orders Ascorbic Acid [Vitamin C] 500 mg PO DAILY 11/11/16 Aspirin [Children's Aspirin] 81 mg PO BID 11/11/16 Calcium Carbonate/Vitamin D3 [Calcium 500-Vit D3 200 Tablet] 1 tab PO DAILY 11/11/16 Denosumab [Prolia] 60 mg SQ Q180D 11/11/16 Insulin Degludec [Tresiba Flextouch U-100] 27 unit SQ HS 11/11/16 Levothyroxine Sodium [Synthroid] 50 mcg PO DAILY 11/11/16 Multivit-Min/Iron/Folic/Lutein [Centrum Silver Women Tablet] 1 tab PO DAILY 11/11/16 [place]-3 Fatty Acids/Fish Oil [Fish Oil 1,000 mg Capsule] 1 cap PO DAILY 11/11/16 metFORMIN HCL [Metformin HCl] 850 mg PO BID 11/11/16 Lisinopril 20 mg PO HS 01/28/19 QUEtiapine [SEROquel] 100 mg PO HS 02/22/19 Simvastatin [Zocor] 40 mg PO HS 04/28/19 Controlled Substance Measures - Controlled Substance Measures Is patient prescribed a controlled substance at discharge?: No
== END | disposition home or self-care (01) ==
LOC: PNWHC3 12:43
PROVIDERS: ATTEND Anesthesiology
DX: G89.29 Other chronic pain (principal); M48.061 Spinal stenosis, lumbar region without neurogenic claudication; M47.816 Spondylosis without myelopathy or radiculopathy, lumbar region; M46.96 Unspecified inflammatory spondylopathy, lumbar region; Z86.69 Personal history of other diseases of the nervous system and sense organs; Z98.890 Other specified postprocedural states; Z87.891 Personal history of nicotine dependence; Z79.899 Other long term (current) drug therapy; Z79.82 Long term (current) use of aspirin; Z79.4 Long term (current) use of insulin; Z79.890 Hormone replacement therapy; Z88.3 Allergy status to other anti-infective agents; Z88.6 Allergy status to analgesic agent
CPT/HCPCS: 99211